=== PATIENT | female | born 1995 | race African-American/Black ===

== ENCOUNTER 2016-08-31 17:45 | Emergency (ER) | payer MEDICAID ==
[~2016-08-31] VITALS: Ht 167.6 cm; Wt 86.4 kg
[2016-08-31] MEDS ORDERED: GuaiFENesin/CODEINE [SUGAR FREE] 200-20MG/10 ML SYRUP UDCUP PO ONE (20:30)
[2016-08-31 21:15] VITALS: BP 122/76
== END 2016-08-31 21:15 | disposition home or self-care (01) ==
LOC: EMS 17:47
DX: J06.9 Acute upper respiratory infection, unspecified (principal)
CPT/HCPCS: 81025; 99282

== ENCOUNTER 2016-09-11 23:04 | Emergency (ER) | payer MEDICAID ==
[~2016-09-11] VITALS: Ht 167.6 cm; Wt 81.5 kg
[2016-09-12 02:31] VITALS: BP 112/78
== END 2016-09-12 02:32 | disposition home or self-care (01) ==
LOC: EMS 23:06
DX: J02.9 Acute pharyngitis, unspecified (principal); F17.210 Nicotine dependence, cigarettes, uncomplicated
CPT/HCPCS: 99283; 99406

== ENCOUNTER 2023-11-21 00:56 | Emergency (ER) | payer MEDICAID, OTHER ==
[~2023-11-21] VITALS: Ht 167.6 cm; Wt 105.5 kg
[2023-11-21 01:05] VITALS: BP 116/54; PULSE 65; RESP 15; TEMP 98.2
[2023-11-21] MEDS: KETOROLAC TROMETHAMINE 60 MG/2 ML VIAL IM ONE (04:02)
[2023-11-21] MEDS ORDERED: IBUP-1492 PO (05:16)
[2023-11-21] MEDS ORDERED: PERCT PO (05:16)
== END 2023-11-21 05:27 | disposition home or self-care (01) ==
LOC: EMS 00:58
DX: R51.9 Headache, unspecified (principal); F17.210 Nicotine dependence, cigarettes, uncomplicated
CPT/HCPCS: 99283; 96372; J1885